=== PATIENT | female | born 1965 | race Hispanic/Latino ===

== ENCOUNTER 2017-07-10 11:25 | Inpatient (IN) | payer SELFPAY ==
[~2017-07-10] VITALS: Ht 147.3 cm; Wt 67.4 kg
[~2017-07-10 11:25] MED LIST: ASPIRIN EC81 MG PO; GLIPIZIDE10 MG PO; LISINOPRIL10 MG PO; LOVASTATIN10 MG PO; MECLIZINE25 MG PO; METFORMIN500 MG PO
--- NOTE | 2017-07-10 11:35 | NUR ---
PT TO ROOM 6 VIA EMS STRETCHER. MD AWARE OF PT STATUS.
--- NOTE | 2017-07-10 11:50 | NUR ---
PT TACHYPNIC, RR 28 AT THIS TIME AND SAO2 89% ON ROOM AIR. DAUGHTER AT BEDSIDE AND REPORTS PT WAS ADMITTED FOR ANEMIA AND DISCHARGE 4 DAYS PRIOR. PT HAS BEEN SOB SINCE TRANFUSION PER DAUGHTER. SKIN W/P/D, PT ABLE TO SPEAK IN FULL SENTENCES WITH NO DIFFICULTY. +1 PITTING EDEMA NOTED TO BILATERAL LOWER EXTREMITIES. LUNG SOUNDS DIMINISHED BILATERALY WITH RALES. RT AT BEDSIDE. PT PLACED IN HF POSITION. WILL CONTINUE TO MONITOR.
[2017-07-10 12:17] LABS: HEMATOCRIT 37.7 % (37.0-47.0); HEMOGLOBIN 12.4 g/dl (12.0-16.0); IMMATURE GRANULOCYTES 0.5 % (0.0-1.0); MEAN CELL VOLUME 87.7 fL CALC (80.0-100.0); MEAN CORPUSCULAR HGB 28.8 pG CALC (26.0-32.0); MEAN CORPUSCULAR HGB CONC 32.9 g/L CALC (32.0-36.0); NEUT# 6.92 thou/uL (2.00-7.15); RED BLOOD COUNT 4.3 mill/uL (4.20-5.60); RED CELL DISTRI WIDTH 15.9 % (11.5-15.5)
--- NOTE | 2017-07-10 12:30 | NUR ---
SAO2 95% ON 2 L NC. PT RESTING COMFORTABLY IN STRETCHER. PT DENIES ANY PAIN AT THIS TIME. RR 20. PT AWARE OF PLAN OF CARE AND WAIT TIME. CALL PARRA WITHIN REACH, WILL CONTINUE TO MONITOR.
[2017-07-10 12:44] LABS: ALKALINE PHOSPHATASE 111 u/l (38-126); ANION GAP 18 (6-22 (CALC)); BILIRUBIN, TOTAL 1.2 mg/dL (0.0-1.4); BUN 13 mg/dL (7-17); BUN/CREATININE RATIO 21 (12-20 (CALC)); CALCIUM 9.7 mg/dL (8.4-10.2); CARBON DIOXIDE 21 mmol/l (22-30); CHLORIDE 105 mmol/l (95-108); CREATININE 0.6 mg/dL (0.5-1.0); GFR > 60 ML/MIN (>=60 (CALC)); GFR FOR AFR.AMER. > 60 ML/MIN (>=60 (CALC)); GLUCOSE 232 mg/dL (65-105); POTASSIUM 4.2 mmol/l (3.5-5.1); SGOT/AST 27 u/l (14-36); SGPT/ALT 36 u/l (9-52); SODIUM 139 mmol/l (137-146); TOTAL PROTEIN 7.6 g/dL (6.3-8.2)
[2017-07-10 12:57] LABS: MYOGLOBIN 22 ng/mL (0 - 62)
--- NOTE | 2017-07-10 13:00 | NUR ---
PT RESTING COMFORTABLY IN STRETCHER WITH HOB ELEVATED. PT DENIES ANY NEEDS AT THIS TIME. DAUGHTER IS AWARE OF WAIT TIME AND PLAN OF CARE.
[2017-07-10] MEDS ORDERED: GLIMEPIRIDE2 MG PO (13:12)
[2017-07-10] MEDS ORDERED: PREDNISONE20 MG PO (13:14)
[2017-07-10] MEDS ORDERED: MELOXICAM7.5 MG PO (13:14)
[2017-07-10] MEDS ORDERED: LEVOTHYROXIN125 MCG PO (13:16)
[2017-07-10] MEDS ORDERED: FERR SULFATE325 MG PO (13:16)
[2017-07-10] MEDS ORDERED: OMEPRAZOLE10 MG PO (13:16)
--- NOTE | 2017-07-10 14:00 | NUR ---
PT DENIES ANY SOB AT THIS TIME AND IS AWARE OF PLAN FOR CTA. WILL CONTINUE TO MONITOR. CALL PARRA WITHIN REACH.
--- NOTE | 2017-07-10 14:52 | NUR ---
PT AND DAUGHTER AWARE OF PLAN FOR ADMISSION AND WAIT TIME. CALL PARRA WITHIN REACH, WILL CONTINUE TO MONITOR. PT DENIES ANY CP OR SOB AT THIS TIME. WILL CONTINUE TO MONITOR.
--- NOTE | 2017-07-10 15:45 | NUR ---
ASSISTED PT TO BEDSIDE COMMODE. PT RESTING COMFORTABLY, DAUGHTER AT BEDSIDE. BOTH AWARE OF PENDING CT RESULTS AND WAIT TIME. CALL PARRA WITHIN REACH.
--- NOTE | 2017-07-10 16:30 | NUR ---
PT VOIDED 900 MLS OF PALE YELLOW URINE. PT RESTING COMFORTBALY IN STRETCHER, WILL CONTINUE TO MONITOR. CALL PARRA WITHIN REACH.
--- NOTE | 2017-07-10 17:15 | NUR ---
PT VOIDED 400 MLS OF PALE YELLOW URINE. PT AND DAUGHTER AWARE OF PLAN FOR ADMISSION AND WAIT TIME. CALL PARRA WITHIN REACH.
--- NOTE | 2017-07-10 17:36 | NUR ---
CADEN CALLED TO CHEY DOMINGUEZ.
--- NOTE | 2017-07-10 18:00 | NUR ---
PT VOIDED 300 MLS OF PALE YELLOW URINE AND DENIES ANY SOB AT THIS TIME. CALL PARRA WITHIN REACH.
--- NOTE | 2017-07-10 18:18 | NUR ---
PT. ARRIVED TO FLOOR VIA STRETCHER AND CHEY SPENCER. PT.APPEARS TO BE STABLE AT THIS TIME. V/S ARE BEING ASSESSED AND PT.ORIENTED TO ROOM, CALL SYSTEM AND LIGHTS/TV. FAMILY IS WITH PT AND DENIES ANY NEEDS AT THIS TIME.
--- NOTE | 2017-07-10 18:18 | NUR ---
Admission Note Report Given to: CHEY DOMINGUEZ Transported by: Wheelchair X Stretcher Transported with: X Nurse Transporter X Patent IV X O2 X Colorer Hides And Skins
[2017-07-10 18:20] VITALS: BP 169/79
--- NOTE | 2017-07-10 19:00 | NUR ---
RECEIVED CHANGE OF SHIFT REPORT FROM CHEY MONTES. PATIENT A/O AND SITTING UP IN BED TALKING ON THE PNONE. DENIES PAIN OR SOB AT THIS TIME. WILL CONTINUE TO MONITOR.
--- NOTE | 2017-07-10 19:45 | NUR ---
PT.MEDICATED W/NOVOLOG 6UM FOR BS 404. PT.JUST FINISHED EATING. CHEY ABAD STATED THAT HE WAS NOTIFYING . FAMILY IS AT BEDSIDE. I ASSISTED PT.TO RESTROOM, PT AMBULATED WELL.
[2017-07-11] VITALS (7 sets, daily range): BP systolic 142–173; BP diastolic 70–84
--- NOTE | 2017-07-11 | NUR ---
PATIENT RESTING COMFORTABLY AT THIS TIME. RESP. EVEN AND NONLABORED. NO APPARENT ACUTED DISTRESS NOTED. WILL CONTINUE TO MONITOR.
--- NOTE | 2017-07-11 04:00 | NUR ---
NO APPARENT ACUTE CHANGES NOTED IN PT'S CONDITION.
--- NOTE | 2017-07-11 07:00 | NUR ---
SHIFT CHANGE REPORT FROM RAN ABAD AWAKE AND ALERT RESTING IN BED, C/O DULL PAIN TO RIGHT EPIGASTRIC AREA, TELE MONITOR IN PLACE, CALL PARRA IN REACH, FAMILY AT BEDSIDE
[2017-07-11 07:19] LABS: HEMATOCRIT 33.9 % (37.0-47.0); HEMOGLOBIN 11.1 g/dl (12.0-16.0); MEAN CELL VOLUME 87.6 fL CALC (80.0-100.0); MEAN CORPUSCULAR HGB 28.7 pG CALC (26.0-32.0); MEAN CORPUSCULAR HGB CONC 32.7 g/L CALC (32.0-36.0); RED BLOOD COUNT 3.87 mill/uL (4.20-5.60); RED CELL DISTRI WIDTH 15.7 % (11.5-15.5)
[2017-07-11 07:22] LABS: ANION GAP 15 (6-22 (CALC)); BUN 20 mg/dL (7-17); BUN/CREATININE RATIO 21 (12-20 (CALC)); CALCIUM 9.5 mg/dL (8.4-10.2); CARBON DIOXIDE 26 mmol/l (22-30); CHLORIDE 104 mmol/l (95-108); GFR 58 ML/MIN (>=60 (CALC)); GFR FOR AFR.AMER. > 60 ML/MIN (>=60 (CALC)); GLUCOSE 76 mg/dL (65-105); MAGNESIUM 1.5 mg/dL (1.6-2.3); POTASSIUM 3.5 mmol/l (3.5-5.1); SODIUM 142 mmol/l (137-146)
[2017-07-11 07:41] LABS: CHOLESTEROL HDL RATIO 5.2 (<4.4 (CALC))
[2017-07-11 13:01] LABS: URINE BILIRUBIN - DIPSTICK NEGATIVE (NEGATIVE); URINE BLOOD DIPSTICK NEGATIVE (NEGATIVE); URINE COLOR YELLOW; URINE GLUCOSE - DIPSTICK NEGATIVE (NEGATIVE); URINE KETONE NEGATIVE (NEGATIVE); URINE LEUK ESTERASE NEGATIVE (NEGATIVE); URINE NITRITE - DIPSTICK NEGATIVE (Negative); URINE PH 5.5 (4.5-8.0); URINE PROTEIN - DIPSTICK NEGATIVE (NEG-TRACE); URINE SPECIFIC GRAVITY 1.015
[2017-07-11 13:02] LABS: URINE CLARITY CLEAR
--- NOTE | 2017-07-11 16:00 | NUR ---
BP @ 1530 = 179/79, 10JMG HYDRALIZINE GIVEN, BP @ 1745 = 142/70 RESTING IN BED, HAD REFUSED SHOWER EARLIER STATING HER DAUGHTER WOULD ASSIST HER, STILL HAS NOT HAD SHOWER TO THIS TIME, WHEN SITUATION ADDRESSED, STATED SHE WILL HAVE IT LATER. FAMILY IN ROOM, CALL PARRA IN REACH.
--- NOTE | 2017-07-11 16:26 | NUR ---
RESTING IN BED AT THIS TIME, ELEVATED BP TREATED PER ORDER, FAMILY AT BEDSIDE.
--- NOTE | 2017-07-11 16:39 | NUR ---
Talked to patient today about her medications. Patient reported feeling better. discussed side effects of ferrous sulfate and hydralazine medications. Patient reported no side effects with these medications. Discussed side effects of lovenox and insulin. Patient reported no side effects. Patient has no other questions to the pharmacy at this time.
--- NOTE | 2017-07-11 19:00 | NUR ---
RECEIOVED CHANGE OF SHIFT REPORT FROM CHEY MENEZES. PATIENT IN BATHROOM HAVING A SHOWER AT THIS TIME.
[2017-07-12] VITALS (7 sets, daily range): BP systolic 120–168; BP diastolic 72–80
--- NOTE | 2017-07-12 | NUR ---
PT LYING IN BED QUIETLY AND APPEARS TO BE ASLEEP. NO APPARENT ACUTE DISTRESS NOTED.
--- NOTE | 2017-07-12 04:00 | NUR ---
NO APPARENT ACUTE CHANGES NOTED N PATIENT'S CONDITION.
[2017-07-12 06:29] LABS: HEMATOCRIT 31.5 % (37.0-47.0); HEMOGLOBIN 10.5 g/dl (12.0-16.0); IMMATURE GRANULOCYTES 0.3 % (0.0-1.0); MEAN CORPUSCULAR HGB CONC 33.3 g/L CALC (32.0-36.0); NEUT# 2.27 thou/uL (2.00-7.15); RED BLOOD COUNT 3.62 mill/uL (4.20-5.60); RED CELL DISTRI WIDTH 15.4 % (11.5-15.5)
[2017-07-12 06:52] LABS: ANION GAP 14 (6-22 (CALC)); BUN 25 mg/dL (7-17); BUN/CREATININE RATIO 28 (12-20 (CALC)); CALCIUM 8.9 mg/dL (8.4-10.2); CARBON DIOXIDE 27 mmol/l (22-30); CHLORIDE 102 mmol/l (95-108); CREATININE 0.9 mg/dL (0.5-1.0); GFR > 60 ML/MIN (>=60 (CALC)); GFR FOR AFR.AMER. > 60 ML/MIN (>=60 (CALC)); GLUCOSE 315 mg/dL (65-105); MAGNESIUM 1.8 mg/dL (1.6-2.3); POTASSIUM 3.7 mmol/l (3.5-5.1); SODIUM 138 mmol/l (137-146)
--- NOTE | 2017-07-12 07:00 | NUR ---
SHIFT CHANGE REPORT FROM POLLO, RAN SLEEPING BUT AROUSES TO VERBAL STIMULI, REPORTS PAIN TO R.CHEST HAS BEEN RESOLVED, NO NEW COMPLAINS, TELE MONITOR IN PLACE, CALL PARRA IN REACH, FAMILY AT BEDSIDE.
--- NOTE | 2017-07-12 11:47 | NUR ---
DR SMITH ROUNDED WITH PT, SHE IS RESTING IN BED, ALL NEEDS ADDRESSED, CALL PARRA IN REACH.
--- NOTE | 2017-07-12 11:49 | NUR ---
REQUEST FOR MEDICAL RECORDS FAXED TO [facility] ON07/11/17, STILL AWAITING RESPONSE. REQUEST REFAXED TODAY AND CAPPING MACHINE OPERATOR APPEMPTED TO CONTACT VIA PHONE BUT WITH NO RESPONSE.
--- NOTE | 2017-07-12 16:54 | NUR ---
RELAXING IN ROOM WITH MANY FAMILY MEMBERS, ALL NEEDS MET, CALL PARRA IN REACH.
--- NOTE | 2017-07-12 19:50 | NUR ---
PT RESTING IN BED WITH FAMILY AT BEDSIDE. RESP EVEN AND UNLABORED. NO DISTRESS NOTED. TELE IN PLACE. ABD SOFT; ACTIVE BOWEL SOUNDS. PEDAL PULSES PALPATED BILAT. IV LAC FLUSHED WITHOUT DIFFICULTY. SAFETY PRECAUTIONS REINFORCED. PT DENIES ANY PAIN OR DISCOMFORT. CALL LIGHT WITHIN REACH.
[2017-07-13 00:09] VITALS: BP 118/57
--- NOTE | 2017-07-13 00:25 | NUR ---
FAMILY AT BEDSIDE. PT RESP EVEN AND UNLABORED. NO DISTRESS NOTED. TELE IN PLACE. CALL LIGHT WITHIN REACH.
--- NOTE | 2017-07-13 04:15 | NUR ---
RESP EVEN AND UNLABORED; NO DISTRESS NOTED. TELE IN PLACE. ASSESSMENT UNCHANGED. FAMILY AT BEDSIDE. CALL LIGHT WITHIN REACH.
[2017-07-13 05:19] LABS: HEMATOCRIT 33.6 % (37.0-47.0); IMMATURE GRANULOCYTES 0.5 % (0.0-1.0); MEAN CELL VOLUME 88.4 fL CALC (80.0-100.0); MEAN CORPUSCULAR HGB 28.9 pG CALC (26.0-32.0); MEAN CORPUSCULAR HGB CONC 32.7 g/L CALC (32.0-36.0); NEUT# 4.36 thou/uL (2.00-7.15); RED BLOOD COUNT 3.8 mill/uL (4.20-5.60); RED CELL DISTRI WIDTH 15.3 % (11.5-15.5)
[2017-07-13 05:30] VITALS: BP 161/77
[2017-07-13 05:36] LABS: ANION GAP 6 (6-22 (CALC)); BUN 32 mg/dL (7-17); BUN/CREATININE RATIO 36 (12-20 (CALC)); CALCIUM 8.4 mg/dL (8.4-10.2); CARBON DIOXIDE 29 mmol/l (22-30); CHLORIDE 104 mmol/l (95-108); CREATININE 0.9 mg/dL (0.5-1.0); GFR > 60 ML/MIN (>=60 (CALC)); GFR FOR AFR.AMER. > 60 ML/MIN (>=60 (CALC)); GLUCOSE 201 mg/dL (65-105); POTASSIUM 3.6 mmol/l (3.5-5.1); SODIUM 136 mmol/l (137-146)
--- NOTE | 2017-07-13 07:00 | NUR ---
SHIFT CHANGE REPORT FROM MARCY, RAN SLEEPING BUT AWAKENED TO VERBAL STIMULI, DENIES PAIN/DISCOMFORT, TELE MONITOR IN PLACE, CALL PARRA IN REACH, FAMILY IN ROOM.
[2017-07-13 07:28] VITALS: BP 159/84
[2017-07-13 07:40] VITALS: BP 159/84
[2017-07-13] MEDS ORDERED: CARVEDILOL6.25 MG PO (08:56)
--- NOTE | 2017-07-13 12:28 | NUR ---
Discharge instructions given. Patient verbalizes understanding of same. Discharged in poor condition via Wheelchair to Home with family. All belongings sent with pt.
== END 2017-07-13 12:28 | disposition home or self-care (01) | DRG 293 ==
LOC: ED 11:25 → ED-I 12:50 → ED 17:01 → MS2 17:02
PROVIDERS: Emergency Medicine; Internal Medicine; Nurse Practitioner Family; ADMIT Internal Medicine; ATTEND Internal Medicine
DX: I11.0 Hypertensive heart disease with heart failure (principal); I50.1 Left ventricular failure, unspecified; E11.65 Type 2 diabetes mellitus with hyperglycemia; D64.9 Anemia, unspecified; E78.5 Hyperlipidemia, unspecified; E66.9 Obesity, unspecified; E03.9 Hypothyroidism, unspecified; I25.10 Atherosclerotic heart disease of native coronary artery without angina pectoris; I25.2 Old myocardial infarction; K21.9 Gastro-esophageal reflux disease without esophagitis; Z79.84 Long term (current) use of oral hypoglycemic drugs; Z87.891 Personal history of nicotine dependence; Z68.33 Body mass index [BMI] 33.0-33.9, adult
CPT/HCPCS: J1650; Q9967

== ENCOUNTER 2017-11-20 00:26 | Observation (INO) | payer SELFPAY ==
[~2017-11-20] VITALS: Ht 147.3 cm; Wt 67.2 kg
[~2017-11-20 00:26] MED LIST changes: +CARVEDILOL6.25 MG PO; +FERR SULFATE325 MG PO; +GLIMEPIRIDE2 MG PO; +LEVOTHYROXIN125 MCG PO; +MELOXICAM7.5 MG PO; +OMEPRAZOLE10 MG PO; +PREDNISONE20 MG PO
--- NOTE | 2017-11-20 00:48 | NUR ---
PT. TO ROOM 13 VIA EMS OC C-PAP PER EMS. MD AT BEDSIDE.
[2017-11-20] MEDS ORDERED: PLAVIX75 MG PO (00:53)
[2017-11-20 00:59] LABS: HEMATOCRIT 38.1 % (37.0-47.0); IMMATURE GRANULOCYTES 0.4 % (0.0-1.0); MEAN CORPUSCULAR HGB 27.1 pG CALC (26.0-32.0); MEAN CORPUSCULAR HGB CONC 31.5 g/L CALC (32.0-36.0); NEUT# 3.22 thou/uL (2.00-7.15); RED BLOOD COUNT 4.43 mill/uL (4.20-5.60); RED CELL DISTRI WIDTH 14.8 % (11.5-15.5)
[2017-11-20 01:14] LABS: ALBUMIN 3.6 g/dL (3.2-5.0); ALKALINE PHOSPHATASE 101 u/l (38-126); BILIRUBIN, TOTAL 0.5 mg/dL (0.0-1.4); BUN 22 mg/dL (7-17); BUN/CREATININE RATIO 20 (12-20 (CALC)); CHLORIDE 111 mmol/l (95-108); CREATININE 1.1 mg/dL (0.5-1.0); GFR 52 ML/MIN (>=60 (CALC)); GFR FOR AFR.AMER. > 60 ML/MIN (>=60 (CALC)); SGOT/AST 20 u/l (14-36); SGPT/ALT 23 u/l (9-52); SODIUM 141 mmol/l (137-146); TOTAL PROTEIN 7.6 g/dL (6.3-8.2)
[2017-11-20 01:15] LABS: ANION GAP 20 (6-22 (CALC)); POTASSIUM 3.5 mmol/l (3.5-5.1)
--- NOTE | 2017-11-20 01:15 | NUR ---
PLACED ON BIPAP AFTER ABG WAS ANALYSED. BIPAP OF 16/8, RATE OF 20 WITH 100%. THEN DECREASED FIO2 TO 60%. BREATHING TREATMENT GIVEN INLINE. WILL CONTINUE TO MONITOR THE PATIENT.
[2017-11-20 01:16] LABS: CARBON DIOXIDE 14 mmol/l (22-30)
[2017-11-20 01:27] LABS: MYOGLOBIN 30 ng/mL (0 - 62)
[2017-11-20 01:28] LABS: URINE BILIRUBIN - DIPSTICK NEGATIVE (NEGATIVE); URINE BLOOD DIPSTICK TRACE-INTACT (NEGATIVE); URINE COLOR YELLOW; URINE GLUCOSE - DIPSTICK 500 mg/dL (NEGATIVE); URINE KETONE NEGATIVE (NEGATIVE); URINE LEUK ESTERASE NEGATIVE (NEGATIVE); URINE NITRITE - DIPSTICK NEGATIVE (Negative); URINE PH 5.5 (4.5-8.0); URINE PROTEIN - DIPSTICK 100 mg/dL (NEG-TRACE); URINE SPECIFIC GRAVITY 1.015; URINE UROBILINOGEN - DIPSTICK 0.2 E.U./dL (0.2)
[2017-11-20 01:30] LABS: URINE CLARITY SL CLOUDY
[2017-11-20 01:37] LABS: URINE BACTERIA FEW hpf; URINE RBC 0-2 RBC/hpf (0-5); URINE SQUAMOUS EPITHELIAL CELL FEW EPI/hpf (0-FEW); URINE WBC 0-2 WBC/hpf (0-5)
[2017-11-20 01:38] LABS: URINE AMORPH SEDIMENT MODERATE hpf (NONE-FEW); URINE COARSE GRANULAR CAST FEW lpf
--- NOTE | 2017-11-20 01:40 | NUR ---
PT ASSISTED TO BSC TO DEFECATE LG SOFT BROWN BM PERICARE/LINENS CHANGED WARM BLANKET
--- NOTE | 2017-11-20 01:40 | NUR ---
AT 0140, PATIENT PLACED ON 3L NC. PATIENT SPO2 95-97%. WILL CONTINUE TO MONITOR THE PATIENT.
--- NOTE | 2017-11-20 01:59 | NUR ---
PHONE REPORT TO NURSE VIDAL ON MS
--- NOTE | 2017-11-20 02:10 | NUR ---
TO MS IN IMPROVED STABLE CONDITION
--- NOTE | 2017-11-20 02:20 | NUR ---
PT ARRIVED TO FLOOR VIA STRETCHER WITH ER NURSE. PT AMBULATED TO SCALE, THEN TO BED. VITAL SIGNS OBTAINED BY PUBLIC RELATIONS CONSULTANT. PT ORIENTED TO ROOM AND CALL LIGHT SYSTEM. PT DENIES PAIN. RESP EVEN AND UNLABORED WITH 3L O2 IN PLACE. LUNGS DIMINISHED THROUGHOUT. ABD SOFT, ACTIVE BOWEL SOUNDS. PT SON REPORTS PT HAD BM DOWN IN ER. TRACE ANKLE EDEMA NOTED BILAT. RIGHT FOOT 4TH TOE AMPUTATED. DRESSING ON FOOT, PT SON REQUEST DRESSING STAYS IN PLACE IT WAS JUST CHANGED TODAY, PT REPORTS NO OPEN AREA. NO DRAINAGE NOTED, CDI. NO FOUL ODOR NOTED. IV LAC PATENT; FLUSHED WITHOUT DIFFICULTY. STANFORD PATENT; DRAINING YELLOW URINE. SAFETY PRECAUTIONS REINFORCED. FREQUENT ROUNDS MADE. CALL LIGHT WITHIN REACH.
[2017-11-20 02:30] VITALS: BP 119/66
--- NOTE | 2017-11-20 04:05 | NUR ---
ASSESSMENT UNCHANGED; RESP EVEN AND UNLABORED. IV PATENT; NO REDNESS OR EDEMA NOTED. TELE ON. CALL LIGHT WITHIN REACH.
--- NOTE | 2017-11-20 04:10 | NUR ---
PT RESTING IN BED. RESP EVEN AND UNLABORED WITH O2 IN PLACE. STANFORD PATENT. ASSESSMENT UNCHNAGED. SON AT BEDSIDE. CALL LIGHT WITHIN REACH.
[2017-11-20 05:11] VITALS: BP 93/58
[2017-11-20 06:44] LABS: ANION GAP 19 (6-22 (CALC)); BUN 23 mg/dL (7-17); BUN/CREATININE RATIO 22 (12-20 (CALC)); CARBON DIOXIDE 16 mmol/l (22-30); CHLORIDE 111 mmol/l (95-108); GFR 58 ML/MIN (>=60 (CALC)); GFR FOR AFR.AMER. > 60 ML/MIN (>=60 (CALC)); SODIUM 142 mmol/l (137-146)
[2017-11-20 06:58] VITALS: BP 110/68
--- NOTE | 2017-11-20 07:20 | NUR ---
REPORT RECEIVED FROM MAGALI VIDAL;PT RESTING IN SEMI FOWLERS POSITION WITH SON AT BEDSIDE;CURRENT BP 110/68,HR 89;CRITICAL TROP OF 0.289 RECEIVED AND TO BE REPORTED TO MD BY MAGALI VIDAL,AWAITING NEW ORDERS;PT ASYMPTOMATIC AT THIS TIME;RESPIRATIONS APPEAR EVEN AND UNLABORED ON O2 @ 3L VIA NC;STAT EKG TO BE OBTAINED;PT DENIES ANY CURRENT NEEDS;ENCOURAGED TO CALL FOR ASSISTANCE AND TO REPORT ANY CONCERNS OR NEEDS;FALL PRECAUTIONS IN PLACE WITH CALL LIGHT IN REACH;WILL CONTINUE TO MONITOR
--- NOTE | 2017-11-20 07:25 | NUR ---
CRITICAL TROPONIN; 0.289. VITAL SIGNS OBTAINED. BP: 110/68 HR:89 02:100 ON O2 3L. EKG OBTAINED. PT DENIES ANY CHEST PAIN. DR WINSLOW INFORMED OF CRITICAL TROPONIN. NEW ORDERS; REPEAT TROPONIN IN 4 HOURS. NO OTHER ORDERS RECIEVED AT THIS TIME. REPORT GIVEN TO MAGALI MELO.
--- NOTE | 2017-11-20 08:00 | NUR ---
PT RESTING IN SEMI FOWLERS POSITION WITH SON AT BEDSIDE,PT IS NOTED TO BE [place] SPEAKING ONLY AND SON ASSISTS IN TRANSLATION;VS OBTAINED AND ASSESSMENT COMPLETED;PT DENIES ANY CURRENT CHEST PAIN OR DISCOMFORTS;RESPIRATIONS EVEN AND UNLABORED ON OXYGEN @ 3L VIA NC,CLEAR/DIMINISHED LUNG SOUNDS NOTED;ABDOMEN SOFT ON PALPATION AND ACTIVE IN ALL 4 QUADRANTS;DRESSING TO RIGHT FOOT FROM AMPUTATED 4TH TOE IN JUL CDI,SKIN OTHERWISE INTACT;PNEMONIA VACCINATION ADMINISTERED TO RIGHT ARM AT THIS TIME;STANFORD CATHETER PATENT DRAINING PALE YELLOW/CLEAR URINE;PT AMBULATED TO RESTROOM WITH STEADY GAIT AND HAD A MODERATE/BROWN BM;#20G TO LAC FLUSHED AND PATENT,SITE APPEARS HEALTHY;PT DENIES ANY CURRENT NEEDS;ENCOURAGED TO CALL FOR ASSISTANCE IF NEEDED;CALL LIGHT IN REACH;WILL CONTINUE TO MONITOR
[2017-11-20 08:03] VITALS: BP 125/83
--- NOTE | 2017-11-20 10:00 | NUR ---
PT RESTING IN SEMI FOWLERS POSITION SON REMAINS AT BEDSIDE;PT REPORTS CHEST DISCOMFORT RATING 3/10 ON THE PAIN SCALE,MD NOTIFIED AND NO NEW ORDERS RECEIVED;WILL CONTINUE TO MONITOR
--- NOTE | 2017-11-20 10:28 | NUR ---
CALL RECEIVED FROM [facility],LAB REPORTING CRITICAL TROP OF 0.392, NOTIFIED AT THIS TIME;TRANSFER INITIATE BY CASE MANAGEMENT;WILL CONTINUE TO MONITOR
--- NOTE | 2017-11-20 10:40 | NUR ---
STAT EKG BEING OBTAINED AT THIS TIME
[2017-11-20 11:08] VITALS: BP 110/74
--- NOTE | 2017-11-20 12:10 | NUR ---
PT RESTING IN SEMI FOWLERS POSITION WITH FAMILY AT BEDSIDE;PT ENCOURAGED TO EAT LUNCH DUE TO LOW BS OF 82,PT VERBALIZES UNDERSTANDING;RESPIRATIONS EVEN AND UNLABORED ON OXYGEN @ 3L VIA NC;PT DENIES ANY CURRENT PAIN OR NEEDS;ENCOURAGED TO CALL FOR ASSISTANCE IF NEEDED;CALL LIGHT IN REACH;WILL CONTINUE TO MONITOR
--- NOTE | 2017-11-20 15:16 | NUR ---
CRITICAL TROP OF 0.476 OBTAINED,PT ASYMPTOMATIC;RICO MULLER,ANRP NOTIFIED
[2017-11-20 15:30] VITALS: BP 109/70
--- NOTE | 2017-11-20 15:30 | NUR ---
PT AMBULATED WITH 1 PERSON ASSIST TO RESTROOM;PT DENIES ANY CURRENT NEEDS;RESPIRATIONS REMAIN EVEN AND UNLABORED ON OXYGEN @ 3L VIA NC;WILL CONTINUE TO MONITOR
--- NOTE | 2017-11-20 18:37 | NUR ---
CALL RECEIVED FROM JHONNY AT [facility]
--- NOTE | 2017-11-20 18:45 | NUR ---
SPOKE WITH ASHWINI LO;ETA FOR ARRIVAL 20-30MINS;PT TO BE NOTIFIED
--- NOTE | 2017-11-20 19:09 | NUR ---
REPORT CALLED TO CHEY BETANCUR AT [facility];AWAITING [facility] FOR [facility]SF[facility]
--- NOTE | 2017-11-20 19:30 | NUR ---
PT RESTING IN BED AWAKE. SON IN ROOM. INFORMED PT AND SON THAT [facility] SHOULD BE HERE FOR TRANSFER SOON. BOTH VERBALIZED UNDERSTANDING. CALL LIGHT IN REACH. WILL CONTINUE TO MONTIOR
--- NOTE | 2017-11-20 19:40 | NUR ---
REPORT GIVEN TO [place] TEAM. SON WILL RIDE WITH [place]low[place].
--- NOTE | 2017-11-20 19:57 | NUR ---
Discharge instructions given. Patient verbalizes understanding of same. Discharged in stable condition via Stretcher to *Other with family. All belongings sent with pt. PT VIA [place] STRETCHER WITH FAMILY IN STABLE CONDITION TO [facility]
== END 2017-11-20 20:00 | disposition short-term general hospital (02) | DRG 281 ==
LOC: ED 00:26 → ED-I 01:20 → ED 01:49 → MS2 01:50
PROVIDERS: Family Medicine; ADMIT Internal Medicine; ATTEND Internal Medicine
PROC: 0T9B70Z Drainage of Bladder with Drainage Device, Via Natural or Artificial Opening (ICD-10-PCS; principal; 2017-11-20)
PROC: 5A09357 Assistance with Respiratory Ventilation, Less than 24 Consecutive Hours, Continuous Positive Airway Pressure (ICD-10-PCS; 2017-11-20)
DX: I21.4 Non-ST elevation (NSTEMI) myocardial infarction (principal); E87.2 Acidosis; I11.0 Hypertensive heart disease with heart failure; I50.9 Heart failure, unspecified; E11.9 Type 2 diabetes mellitus without complications; I73.9 Peripheral vascular disease, unspecified; E03.9 Hypothyroidism, unspecified; E78.5 Hyperlipidemia, unspecified; K21.9 Gastro-esophageal reflux disease without esophagitis; F17.210 Nicotine dependence, cigarettes, uncomplicated; Z91.14 Patient's other noncompliance with medication regimen; Z79.84 Long term (current) use of oral hypoglycemic drugs; Z89.421 Acquired absence of other right toe(s); Z79.02 Long term (current) use of antithrombotics/antiplatelets
CPT/HCPCS: G0378; J1650

== ENCOUNTER 2019-11-10 14:02 | Observation (INO) | payer SELFPAY ==
[~2019-11-10] VITALS: Ht 147.3 cm; Wt 72.7 kg
[~2019-11-10 14:02] MED LIST changes: +PLAVIX75 MG PO
[2019-11-10 14:48] LABS: IMMATURE GRANULOCYTES 0.3 % (0.0-5.0); MEAN CELL VOLUME 87.1 fL CALC (80.0-100.0); MEAN CORPUSCULAR HGB 28.4 pG CALC (26.0-32.0); MEAN CORPUSCULAR HGB CONC 32.6 g/dL CAL (32.0-36.0); NEUT# 4.13 thou/uL (2.00-7.15); RED BLOOD COUNT 3.1 mill/uL (4.20-5.60); RED CELL DISTRI WIDTH 12.8 % (11.5-15.5)
[2019-11-10 14:50] LABS: HEMOGLOBIN 8.8 g/dl (12.0-16.0)
[2019-11-10 15:21] LABS: ALBUMIN 3.7 g/dL (3.2-5.0); ALKALINE PHOSPHATASE 135 u/l (38-126); ANION GAP 13 (6-22 (CALC)); BILIRUBIN, TOTAL 0.5 mg/dL (0.0-1.4); BUN 50 mg/dL (7-17); BUN/CREATININE RATIO 26 (12-20 (CALC)); CARBON DIOXIDE 18 mmol/l (22-30); CHLORIDE 112 mmol/l (95-108); CREATININE 1.9 mg/dL (0.5-1.0); GFR 27 ML/MIN (>=60 (CALC)); GFR FOR AFR.AMER. 33 ML/MIN (>=60 (CALC)); LIPASE 77 u/l (23-300); SGOT/AST 23 u/l (14-36); SODIUM 137 mmol/l (137-146); TOTAL PROTEIN 7.2 g/dL (6.3-8.2)
[2019-11-10 15:24] LABS: POTASSIUM 5.9 mmol/l (3.5-5.1)
[2019-11-10] MEDS ORDERED: LASIX 20 MG TAB20 MG PO (15:28)
[2019-11-10] MEDS ORDERED: SPIRONOLACTONE25 MG PO (15:29)
[2019-11-10] MEDS ORDERED: LIPITOR40 M1 PO (15:30)
[2019-11-10] MEDS ORDERED: COREG25 MG PO (15:31)
[2019-11-10 15:35] LABS: URINE BILIRUBIN - DIPSTICK NEGATIVE (NEGATIVE); URINE BLOOD DIPSTICK SMALL (NEGATIVE); URINE COLOR YELLOW; URINE GLUCOSE - DIPSTICK NEGATIVE (NEGATIVE); URINE KETONE NEGATIVE (NEGATIVE); URINE LEUK ESTERASE NEGATIVE (NEGATIVE); URINE PH 5.5 (4.5-8.0); URINE PROTEIN - DIPSTICK >=300 mg/dL (NEG-TRACE); URINE SPECIFIC GRAVITY >=1.030; URINE UROBILINOGEN - DIPSTICK 0.2 E.U./dL (0.2)
[2019-11-10 15:36] LABS: URINE NITRITE - DIPSTICK POSITIVE (Negative)
[2019-11-10 15:49] LABS: URINE AMORPH SEDIMENT FEW hpf (NONE-FEW); URINE BACTERIA MODERATE hpf; URINE SQUAMOUS EPITHELIAL CELL FEW EPI/hpf (0-FEW)
[2019-11-10 17:43] VITALS: BP 195/75
[2019-11-10 17:50] VITALS: BP 195/75
[2019-11-10 18:32] VITALS: BP 191/89
[2019-11-10 23:43] VITALS: BP 153/61
[2019-11-11 04:45] VITALS: BP 170/76
[2019-11-11 05:42] LABS: HEMATOCRIT 25.9 % (37.0-47.0); HEMOGLOBIN 8.4 g/dl (12.0-16.0); IMMATURE GRANULOCYTES 0.5 % (0.0-5.0); MEAN CELL VOLUME 88.4 fL CALC (80.0-100.0); MEAN CORPUSCULAR HGB 28.7 pG CALC (26.0-32.0); MEAN CORPUSCULAR HGB CONC 32.4 g/dL CAL (32.0-36.0); NEUT# 2.93 thou/uL (2.00-7.15); RED BLOOD COUNT 2.93 mill/uL (4.20-5.60); RED CELL DISTRI WIDTH 12.6 % (11.5-15.5)
[2019-11-11 06:01] LABS: BILIRUBIN, TOTAL 0.4 mg/dL (0.0-1.4); CREATININE 1.5 mg/dL (0.5-1.0); POTASSIUM 5.1 mmol/l (3.5-5.1); TOTAL PROTEIN 5.9 g/dL (6.3-8.2)
[2019-11-11 06:02] LABS: ALBUMIN 2.9 g/dL (3.2-5.0)
[2019-11-11 08:30] VITALS: BP 154/65
[2019-11-11] MEDS ORDERED: AMLODIPINE BESYL5 MG PO (10:27)
[2019-11-11 10:59] VITALS: BP 131/69
[2019-11-11] MEDS ORDERED: CIPROFLOXACN500 MG PO (13:39)
== END 2019-11-11 14:39 | disposition home or self-care (01) | DRG 641 ==
LOC: ED 14:02 → ED-I 15:50 → ED 16:02 → ED-I 16:03 → MS2 16:24
PROVIDERS: Family Medicine; Nurse Practitioner Family; ADMIT Internal Medicine; ATTEND Internal Medicine
DX: E87.5 Hyperkalemia (principal); N39.0 Urinary tract infection, site not specified; N28.9 Disorder of kidney and ureter, unspecified; D63.8 Anemia in other chronic diseases classified elsewhere; I11.0 Hypertensive heart disease with heart failure; I50.9 Heart failure, unspecified; E11.9 Type 2 diabetes mellitus without complications; I25.10 Atherosclerotic heart disease of native coronary artery without angina pectoris; E03.9 Hypothyroidism, unspecified; E78.5 Hyperlipidemia, unspecified; I25.2 Old myocardial infarction; B96.20 Unspecified Escherichia coli [E. coli] as the cause of diseases classified elsewhere; Z79.84 Long term (current) use of oral hypoglycemic drugs; Z87.891 Personal history of nicotine dependence; Z11.59 Encounter for screening for other viral diseases
CPT/HCPCS: G0378

== ENCOUNTER 2020-01-10 21:18 | Emergency (ER) | payer SELFPAY ==
[~2020-01-10] VITALS: Ht 147.3 cm; Wt 68.0 kg
[~2020-01-10 21:18] MED LIST changes: +AMLODIPINE BESYL5 MG PO; +CIPROFLOXACN500 MG PO; +COREG25 MG PO; +LASIX 20 MG TAB20 MG PO; +LIPITOR40 M1 PO; +SPIRONOLACTONE25 MG PO
[2020-01-10 22:04] LABS: HEMATOCRIT 27.8 % (37.0-47.0); HEMOGLOBIN 9.2 g/dl (12.0-16.0); IMMATURE GRANULOCYTES 0.3 % (0.0-5.0); MEAN CORPUSCULAR HGB 27.8 pG CALC (26.0-32.0); MEAN CORPUSCULAR HGB CONC 33.1 g/dL CAL (32.0-36.0); NEUT# 4.62 thou/uL (2.00-7.15); RED BLOOD COUNT 3.31 mill/uL (4.20-5.60); RED CELL DISTRI WIDTH 11.9 % (11.5-15.5)
[2020-01-10 22:22] LABS: ALBUMIN 3.3 g/dL (3.2-5.0); AMYLASE 105 u/l (30-110); BILIRUBIN, TOTAL 0.5 mg/dL (0.0-1.4); BUN 37 mg/dL (7-17); BUN/CREATININE RATIO 21 (12-20 (CALC)); CARBON DIOXIDE 23 mmol/l (22-30); CHLORIDE 102 mmol/l (95-108); CREATININE 1.8 mg/dL (0.5-1.0); GFR 29 ML/MIN (>=60 (CALC)); GFR FOR AFR.AMER. 35 ML/MIN (>=60 (CALC)); LIPASE 53 u/l (23-300); POTASSIUM 4.7 mmol/l (3.5-5.1); SGOT/AST 24 u/l (14-36); TOTAL PROTEIN 6.7 g/dL (6.3-8.2)
[2020-01-10 22:30] LABS: ALKALINE PHOSPHATASE 205 u/l (38-126); ANION GAP 10 (6-22 (CALC)); SODIUM 130 mmol/l (137-146)
[2020-01-10 22:34] LABS: MYOGLOBIN 78 ng/mL (0 - 62)
[2020-01-10 23:29] LABS: URINE BILIRUBIN - DIPSTICK NEGATIVE (NEGATIVE); URINE BLOOD DIPSTICK TRACE-INTACT (NEGATIVE); URINE COLOR YELLOW; URINE GLUCOSE - DIPSTICK 250 mg/dL (NEGATIVE); URINE KETONE NEGATIVE (NEGATIVE); URINE LEUK ESTERASE NEGATIVE (NEGATIVE); URINE NITRITE - DIPSTICK NEGATIVE (Negative); URINE PH 6.5 (4.5-8.0); URINE PROTEIN - DIPSTICK 100 mg/dL (NEG-TRACE); URINE UROBILINOGEN - DIPSTICK 0.2 E.U./dL (0.2)
[2020-01-10 23:32] LABS: URINE BACTERIA FEW hpf; URINE EPITHELIAL CELLS FEW EPI/hpf (0-FEW); URINE MUCUS RARE hpf (NONE-FEW)
[2020-01-10] MEDS ORDERED: ONDANSETRON4 MG PO (23:57)
[2020-01-10] MEDS ORDERED: MECLIZINE25 MG PO (23:57)
[2020-01-10] MEDS ORDERED: CIPROFLOXACN500 MG PO (23:57)
[2020-01-11] VITALS: BP 142/62
== END 2020-01-11 00:29 | disposition home or self-care (01) | DRG 149 ==
LOC: ED 21:18
PROVIDERS: Emergency Medicine
DX: R42 Dizziness and giddiness (principal); E11.65 Type 2 diabetes mellitus with hyperglycemia; N39.0 Urinary tract infection, site not specified; I11.0 Hypertensive heart disease with heart failure; I50.9 Heart failure, unspecified; I25.2 Old myocardial infarction; Z79.84 Long term (current) use of oral hypoglycemic drugs

== ENCOUNTER 2020-10-24 03:08 | Inpatient (IN) | payer SELFPAY ==
[~2020-10-24] VITALS: Ht 147.3 cm; Wt 75.0 kg
[2020-10-24] VITALS (18 sets, daily range): BP systolic 115–159; BP diastolic 39–81
[~2020-10-24 03:08] MED LIST changes: +ONDANSETRON4 MG PO
--- NOTE | 2020-10-24 03:10 | NUR ---
PT MOVED TO ROOM 11 UPON ARRIVAL FOR TRIAGE
[2020-10-24 03:41] LABS: HEMATOCRIT 25.4 % (37.0-47.0); HEMOGLOBIN 7.8 g/dl (12.0-16.0); IMMATURE GRANULOCYTES 0.5 % (0.0-5.0); MEAN CORPUSCULAR HGB 28.6 pG CALC (26.0-32.0); MEAN CORPUSCULAR HGB CONC 30.7 g/dL CAL (32.0-36.0); NEUT# 4.42 thou/uL (2.00-7.15); RED BLOOD COUNT 2.73 mill/uL (4.20-5.60); RED CELL DISTRI WIDTH 13.2 % (11.5-15.5)
--- NOTE | 2020-10-24 04:07 | NUR ---
PT IS ON CPAP AND RESTING COMFORTABLY WITH NOTABLE DECREASE IN HER WORK OF BREATHING
[2020-10-24 04:26] LABS: D-DIMER 0.99 mg/L (0.19-0.60)
[2020-10-24 04:28] LABS: ALBUMIN 3.2 g/dL (3.2-5.0); BILIRUBIN, TOTAL 0.5 mg/dL (0.0-1.4); TOTAL PROTEIN 7.2 g/dL (6.3-8.2)
[2020-10-24 04:31] LABS: INTERNATIONAL NORMALIZED RATIO 0.9 RATIO (0.7-1.3); PROTHROMBIN TIME 9.5 SECONDS (9.0-12.5)
--- NOTE | 2020-10-24 04:32 | NUR ---
BUN 96 CREATNINE 5.5 K+ 6.2 RESULTS REPORTED TO MD AT THIS TIME
[2020-10-24 04:33] LABS: CREATININE 5.5 mg/dL (0.5-1.0); POTASSIUM 6.2 mmol/l (3.5-5.1)
[2020-10-24] MEDS ORDERED: B-COMPL12 (05:19)
[2020-10-24] MEDS ORDERED: LOVASTATIN10 M1 PO (05:20)
[2020-10-24] MEDS ORDERED: METFORMIN HCL1000 MG PO (05:22)
[2020-10-24] MEDS ORDERED: ACIDOPHILUS1 CHW (05:24)
[2020-10-24] MEDS ORDERED: DRISDOL50000 UNIT (05:26)
[2020-10-24] MEDS ORDERED: FAMOTIDINE20 M1 PO (05:27)
[2020-10-24] MEDS ORDERED: FERROUS SULF325 M2 PO (05:28)
[2020-10-24] MEDS ORDERED: HYDRALAZINE50 MG PO (05:28)
[2020-10-24] MEDS ORDERED: ISOSORBIDE MONO30 MG PO (05:30)
[2020-10-24] MEDS ORDERED: MAGN OXIDE XX (05:31)
--- NOTE | 2020-10-24 05:32 | NUR ---
REPORT CALLED TO ICU AWAITING RT FOR PATIENT TRANSPORT
[2020-10-24] MEDS ORDERED: SODIUM BICARBONATE PO (05:33)
--- NOTE | 2020-10-24 05:43 | NUR ---
PT IS BEING TRANSPORTED TO ICU BY RN AND RT FOR PATIENT SAFETY.
--- NOTE | 2020-10-24 06:29 | NUR ---
CALLED AND SPOKE TO NAY PEREZ APRN REGARDING INSULIN DRIP ORDER CLARIFICATION, NOTIFIED HER OF LAB WORK, ANBION GAP, LAB GLUCOSE, NEW ORDERES RECEIVED, PLACE ON LOW DOSE SLIDING SCALE. PROTOCOL PRINTED, SIGNED, AND FAXED TO .
--- NOTE | 2020-10-24 06:31 | NUR ---
PATIENT IS AWAKE, ORIENTED X4. ON BIPAP FIO2 28%, O2 SATS 100%,SHALLOW BREATHING. SHE IS GREEK SPEAKING, REPORTS SHE CANNOT READ OR WRITE. IS ABLE TO ANSWER SOME ADMISSION QUESTIONS, FOR QUESTIONS SUCH , VACCINES OR MEDICAL HISTORY. SHE REPORTS SHE DOES NOT KNOW. REPORTS HER SOB IS MILD NOW. REPORTS SHE HAD A BM AT THE ER BUT DOES NOT KNOW IF IT WAS LOOSE. SHE REPORTS WHEN SHE VOIDS IT IS SMALL AMOUNTS. PLACED A STANFORD CATHETER DUE TO PATIENT HAD DOSE OF LASIX, AND FOR URINE OUT MEASUREMNENT, PATIENT UNDERSTANDS AND AGREED. DENIES FALLING RECENTLY, REPORTS SHE USES A CANE AND HER FAMILY HELPS HER AT HOME, LIVES WITH HER AND SON. AFEBRILE, BP 140'S SYSTOLIC. SR ON TELEMETRY, HR 60'S. DENIES ANY TYPE OF PAIN, NO COUGH NOTED. DID MENTION SHE DOES NOT WANT THE COVID VACCINE. 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 PLACED HER ON A BEDPAN PER REQUEST FOR BM, PATIENT DID NOT WANT TO GET UP TO BSC.
[2020-10-24 07:15] LABS: URINE BILIRUBIN - DIPSTICK NEGATIVE (NEGATIVE); URINE BLOOD DIPSTICK SMALL (NEGATIVE); URINE GLUCOSE - DIPSTICK 250 mg/dL (NEGATIVE); URINE KETONE NEGATIVE (NEGATIVE); URINE LEUK ESTERASE NEGATIVE (NEGATIVE); URINE PH 5.5 (4.5-8.0); URINE PROTEIN - DIPSTICK >=300 mg/dL (NEG-TRACE); URINE UROBILINOGEN - DIPSTICK 0.2 E.U./dL (0.2)
[2020-10-24 07:19] LABS: URINE NITRITE - DIPSTICK NEGATIVE (Negative)
[2020-10-24 07:20] LABS: URINE COLOR STRAW; URINE EPITHELIAL CELLS MODERATE EPI/hpf (0-FEW); URINE MUCUS MANY hpf (NONE-FEW)
--- NOTE | 2020-10-24 07:20 | NUR ---
RECEIVED REPORT FROM NIGHT NURSE.
--- NOTE | 2020-10-24 07:47 | NUR ---
PT TAKEN OFF BIPAP AND PLACED ON 3L NC. NO SOB NOTED. SPO2 IS 100%. RN NOTIFIED.
--- NOTE | 2020-10-24 08:57 | NUR ---
DR. JAMES WAS CONSULTED FOR PATIENT BY DR. BENNETT.
[2020-10-24 09:22] LABS: CREATININE 5.2 mg/dL (0.5-1.0); POTASSIUM 6.8 mmol/l (3.5-5.1)
--- NOTE | 2020-10-24 10:00 | NUR ---
PATIEN IS SITTING UP IN BED.
--- NOTE | 2020-10-24 12:00 | NUR ---
PATIENT IS RESTING IN BED.
--- NOTE | 2020-10-24 12:40 | NUR ---
PATIENTS BLOOD SUGAR 74 AFTER 30 MIN COMPLETION OF DEXTROSE. PATIENT CONTINUES TO REMAIN NPO PER DOCTORS ORDERS.
[2020-10-24 13:50] LABS: ALBUMIN 2.6 g/dL (3.2-5.0)
[2020-10-24 13:59] LABS: CREATININE 5.3 mg/dL (0.5-1.0); POTASSIUM 5.5 mmol/l (3.5-5.1)
--- NOTE | 2020-10-24 14:14 | NUR ---
MESSAGED BOTH DR BENNETT AND DR JAMES ABOUT CRITICAL LAB RESULTS. PATIENT IS ALSO OFF OXYGEN. O2 SATS ARE STABLE AT 98% ROOM AIR.
--- NOTE | 2020-10-24 16:01 | NUR ---
Patient underwent assessment today and is a candidate for PT initial evaluation.
--- NOTE | 2020-10-24 16:04 | NUR ---
PATIENT IS TALKING ON THE PHONE.
--- NOTE | 2020-10-24 17:19 | NUR ---
RT AT BEDSIDE FOR EKG, EKG SENT TO DR BENNETT. DR ROMERO NOTIFEIED OF PT COMPLAINTS OF CHEST PAIN. ORDERS RECEIVED FOR REPEAT TROPONIN IN 6 HOURS.
--- NOTE | 2020-10-24 18:09 | NUR ---
PATIENT IS LAYING IN BED. SPOKE TO DAUGHTER WHEN SHE WAS HERE, GAVE HER AN UPDATE ASK REQUESTED BEFORE SHE LEFT.
--- NOTE | 2020-10-24 19:59 | NUR ---
PATIENT IS AWAKE, ORIENTED X4, LAYS IN HERRERA'S POSITION. ON RA, O2 SATS GREATER THAN 95%, NO RESPIRATORY DISTRESS NOTED, NO SOB NOTED, NO COMPLAINTS OF SOB. DENIES CHEST PAIN. SR ON TELEMETRY, HR 70'S. BP 150'S SYSTOLIC. IS ABLE TO FOLLOW DIRECTIONS, IS ABLE TO PULL HERSELF UP WITH VERBAL CUEING. WEAK AUDIOLOGY DIRECTOR BILATERALLY PRESENT. NURSE ASSESSMENT PERFORMED. POC DISCUSSED. IV X2 PRESENT, INTACT, FLUSH PROPERLY. SODIUM BICARBONATE INFUSING AT 75 ML/HR. STANFORD CATHETER PRESENT, DRAINS PALE YELLOW/CLEAR URINE. BLE EDEMA 1+ PITTING. ACCUCHECK OBTAINED, 137 MG/DL. CALL LIGHT WITHIN REACH.
--- NOTE | 2020-10-24 21:14 | NUR ---
PATIENT ABLE TO SWALLOW HER MEDIACTION, TOLERATES LOVENOX INJECTION. NO COMPLAINTS, NO ACUTE DISTRESS SHOWN. TALKS ON HER CELLPHONE INTERMITTENTLY. CALL LIGHT WITHIN REACH.
--- NOTE | 2020-10-24 21:25 | NUR ---
CALLED AND SPOKE TO ANABELL FERNANDEZ APRN TO NOTIFY OF CRITICAL TROPONIN 0.243. PATIENT DENIES CHEST PAIN, NO ACUTE DISTRESS SHOWN. ANABELL WILL PLACE NEW ORDERS,IF ANY CHANGES, OBTAIN EKG AND NOTIFY HIM. WILL CONTINUE TO MONITOR.
--- NOTE | 2020-10-24 23:00 | NUR ---
NEW IV FLUID BAG OF SODIUM BICARB INFUSING. PATIENT RESTS, AWAKENS EASILY WHEN SPOKEN TO. NO COMPLAINTS OR NEEDS AT THIS TIME. NO ACUTE DISTRESS SHOWN. CALL LIGHT WITHIN REACH.
[2020-10-25] VITALS (9 sets, daily range): BP systolic 126–169; BP diastolic 63–87
--- NOTE | 2020-10-25 00:19 | NUR ---
PLACED PATIENT ON 2 L/MIN NC DUE TO WHEN SHE IS SLEEPING, PULSE OX READS 80'S. NO ACUTE DISTRESS SHOWN. REQUESTS TO PLACE CELLPHONE TO CHARGE. CALL LIGHT WITHIN REACH.
--- NOTE | 2020-10-25 03:24 | NUR ---
PATIENT SLEEPS, NO ACUTE DISTRESS SHOWN, AWAKENS WITH VERBAL STIMULI, NO COMPLAINTS OR NEEDS AT THIS TIME. AFEBRILE, 1,000 ML OF PALE YELLOW/CLEAR URINE EMPTIED FROM STANFORD. CALL LIGHT WITHIN REACH.
--- NOTE | 2020-10-25 04:44 | NUR ---
MARKETING OPERATIONS MANAGER IN ROOM TO OBTAIN BLOOD FOR AM LABS.
--- NOTE | 2020-10-25 05:01 | NUR ---
PATIENT IS AWAKE, LAYS IN HERRERA'S POSITION. NO COMPLAINTS OF PAIN, NO NEEDS AT THIS TIME. REMAINS ON 2 L/MIN NC, O2 SATS 100%, NO RESPIRATORY DISTRESS NOTED. CALL LIGHT WITHIN REACH.
[2020-10-25 05:35] LABS: ALBUMIN 2.3 g/dL (3.2-5.0); POTASSIUM 4.5 mmol/l (3.5-5.1)
[2020-10-25 05:50] LABS: CREATININE 5.1 mg/dL (0.5-1.0)
[2020-10-25] MEDS ORDERED: AMLODIPINE BESY10 MG PO (07:12)
[2020-10-25] MEDS ORDERED: CLOPIDOGREL75 MG PO (07:13)
[2020-10-25] MEDS ORDERED: APRESOLINE25 MG/TAB PO (07:13)
[2020-10-25] MEDS ORDERED: ATORVASTATIN CA40 MG PO (07:13)
[2020-10-25] MEDS ORDERED: ISOSORB MONO30 MG PO (07:14)
[2020-10-25] MEDS ORDERED: LASIX 40 MG TAB40 MG PO (07:14)
[2020-10-25] MEDS ORDERED: LISINOPRIL5 MG PO (07:14)
[2020-10-25] MEDS ORDERED: MAG-OXIDE200 MG PO (07:15)
[2020-10-25] MEDS ORDERED: METFORMIN HCL1000 MG PO (07:16)
[2020-10-25] MEDS ORDERED: SODIUM BICAR650 MG PO (07:17)
--- NOTE | 2020-10-25 07:34 | NUR ---
PT REPORT RECEIVED, PT ITALIAN SPEAKING, ALERT/ORIENTED X3, FLUIDS INFUSING AT 75CC/HR. IS NPO FOR NOW..
--- NOTE | 2020-10-25 09:55 | NUR ---
PT RESTING QUIETLY, NO COMPLAINTS AT THIS TIME. VITAL SIGNS AT THIS TIME
--- NOTE | 2020-10-25 14:11 | NUR ---
RECIEVED REPORT FROM CHEY PRATT
--- NOTE | 2020-10-25 14:36 | NUR ---
PT ARRIVED TO [facility] ROOM 277 VIA WHEELCHAIR ACCOMPAINED BY CHEY SAINI. PT AMBULATED TO BED WITH STEADY GAIT. PT IS A/O X3 AND BRUNEIAN SPEAKING ONLY. MARU KNOWLES TO ASSIST WITH TRANSLATION. ASSESSMENT AND VITALS COMPLETED. REPSIRATIONS ARE EVEN AND UNLABORED WITH NO DISRTESS NOTED ON 2L NC. REPORTED EXCERTIONAL SOB. LUNG SOUNDS ARE DIMINSHED. BOWEL SOUNDS ARE ACTIVE, LAST REPORTED BM 10/24/20. HEART RHYTHM NORMAL, SR PER ER MONITORING. SKIN INTACT. TRACE EDEMA NOTED TO BLE. #20G IN RAC AND #20G LH FLUSHED, SITES APPEARS HEALTHY AND PATENT. STANFORD CATHATER IN PLACE. CLEAR YELLOW URINE NOTED. PT DENIES OF ANY PAINS OR DISCOMFORTS AT THIS TIME. ALL SAFETY PRECAUTIONS ARE IN PLACE WITH CALL LIGHT IN REACH. ENCOURAGED PT TO CALL FOR ASSISTANCE. WILL CONTINUE TO MONITOR.
--- NOTE | 2020-10-25 16:00 | NUR ---
PT RESTING IN SEMI FOWLERS POSITION. RESPIRATIONS ARE EVEN AND UNLABORED WITH NO DISTRESS NOTED. STANFORD CATHATER IN PLACE, TUBING PATENT. PT DENIES OF ANY PAINS OR DISCOMFORTS. ALL SAFETY PRECAUTIONS ARE IN PLACE WITH CALL LIGHT IN REACH. WILL CONTINUE TO MONITOR.
--- NOTE | 2020-10-25 17:31 | NUR ---
DEMETRIO RESULTIIAUSTIN IN 194, COVERAGE ADMINISTERED.PT TOLERATED WELL.
--- NOTE | 2020-10-25 19:10 | NUR ---
1909-Report and handoff given by MAGALI Argueta.
--- NOTE | 2020-10-25 21:33 | NUR ---
2133-Pt lying in bed with eyes closed. Easily awoken. Denies pain. Denies SOB or chest pain. She is very pleasant. No s/s of distress. Offered her fluids and position change. Bed low and locked. Call light and phone within reach. She asked for me to please close her door so she could sleep. I complied with her request. Will frequently monitor, safety precautions in place.
[2020-10-26] VITALS: BP 120/45
--- NOTE | 2020-10-26 00:30 | NUR ---
0030-Pt asleep in bed, easily arousable. No s/s of distress. Bed low and locked. Call light and phone within reach. Safety precautions in place.
--- NOTE | 2020-10-26 03:30 | NUR ---
0330-Pt in bed asleep. No s/s of respiratory distress or cardiac distress. Pt is arousable. Bed low and locked. Call light and phone within reach. Safety precautions in place.
[2020-10-26 04:00] VITALS: BP 154/76
--- NOTE | 2020-10-26 04:30 | NUR ---
0430-Pt had nausea episode. Brought her ice chips and saltine crackers. She verbalized "[place]" concerning the crackers. I will pass the small episode on in report to dayshift. She may need PRN antinausea medication.
[2020-10-26 05:41] LABS: HEMATOCRIT 25.7 % (37.0-47.0); MEAN CELL VOLUME 92.1 fL CALC (80.0-100.0); MEAN CORPUSCULAR HGB 28.7 pG CALC (26.0-32.0); MEAN CORPUSCULAR HGB CONC 31.1 g/dL CAL (32.0-36.0); RED BLOOD COUNT 2.79 mill/uL (4.20-5.60)
[2020-10-26 05:44] LABS: ALBUMIN 2.7 g/dL (3.2-5.0); MAGNESIUM 1.7 mg/dL (1.6-2.3); POTASSIUM 4.2 mmol/l (3.5-5.1)
--- NOTE | 2020-10-26 05:50 | NUR ---
0550-Critical lab value called in from Mirna in the lab. BUN is 80 Creatinine is 5.5. These critical lab results were sent to Dr. Abad via text at 0596. This information will also be passed along in report.
[2020-10-26 05:52] LABS: CREATININE 5.5 mg/dL (0.5-1.0)
--- NOTE | 2020-10-26 05:59 | NUR ---
0559-After reading previous texts from Dr. Abad I called him by phone and verbally told him the critical lab results. His direct quote is "ok."
--- NOTE | 2020-10-26 06:20 | NUR ---
0620-Pt lying on left side awake. Medication administerd, fluids offered. Pt denies nausea and pain at this time. No s/s of distress. Bed low and locked. Call light and phone within reach. Safety precautions in place.
[2020-10-26 07:32] VITALS: BP 153/66
--- NOTE | 2020-10-26 09:00 | NUR ---
PT ALERT AND ORIENTED X 3. LUNGS CLEAR, 2 LPM. NO COMPLAINTS SHORTNESS OF BREATH OR OTHERWISE. STANFORD CATHETER REMOVED AFTER DR BENNETT SAW PT. POSSIBLE DISCHARGE LATER TODAY.
--- NOTE | 2020-10-26 09:48 | NUR ---
Blood culture result of Bacillus growth reported to Dr Abad. Likely a contaminant. No new orders at this time.
[2020-10-26 11:07] VITALS: BP 113/42
[2020-10-26] MEDS ORDERED: DRISDOL50000 UNIT PO (13:39)
[2020-10-26] MEDS ORDERED: ASPIRIN 81 LOW81 MG PO (14:23)
--- NOTE | 2020-10-26 14:30 | NUR ---
PT AMBULATED FOR 6 MINUTE WALK TEST, DID NOT QUALIFY FOR HOME O-2. PT AWARE OF PENDING DISCHARGE, IV REMOVED AND TELE REMOVED.
[2020-10-26 14:52] VITALS: BP 123/58
--- NOTE | 2020-10-26 15:41 | NUR ---
PT HAS BEEN DISCHARGED TO HOME. PT AND SON VERBALIZE UNDERSTANDING OF DC INSTRUCTIONS, TAKEN BY WHEELCHAIR TO VEHICLE. PT [facility]AVES [facility] IN STABLE CONDITION.
== END 2020-10-26 15:40 | disposition home or self-care (01) | DRG 281 ==
LOC: ED 03:08 → ED-I 04:38 → ED 05:11 → ICU 05:12 → MS2 10-25 14:36
PROVIDERS: Family Medicine; Internal Medicine Nephrology; Nurse Practitioner; ADMIT Internal Medicine; ATTEND Internal Medicine
PROC: 5A09357 Assistance with Respiratory Ventilation, Less than 24 Consecutive Hours, Continuous Positive Airway Pressure (ICD-10-PCS; principal; 2020-10-24)
DX: I21.4 Non-ST elevation (NSTEMI) myocardial infarction (principal); I13.0 Hypertensive heart and chronic kidney disease with heart failure and stage 1 through stage 4 chronic kidney disease, or unspecified chronic kidney disease; E87.2 Acidosis; N18.4 Chronic kidney disease, stage 4 (severe); N17.9 Acute kidney failure, unspecified; E87.1 Hypo-osmolality and hyponatremia; N25.81 Secondary hyperparathyroidism of renal origin; Z68.41 Body mass index [BMI] 40.0-44.9, adult; N39.0 Urinary tract infection, site not specified; E11.22 Type 2 diabetes mellitus with diabetic chronic kidney disease; I50.9 Heart failure, unspecified; E11.65 Type 2 diabetes mellitus with hyperglycemia; E87.5 Hyperkalemia; D63.1 Anemia in chronic kidney disease; I25.10 Atherosclerotic heart disease of native coronary artery without angina pectoris; E78.5 Hyperlipidemia, unspecified; E03.9 Hypothyroidism, unspecified; E66.01 Morbid (severe) obesity due to excess calories; R42 Dizziness and giddiness; I25.2 Old myocardial infarction; K21.9 Gastro-esophageal reflux disease without esophagitis; Z89.421 Acquired absence of other right toe(s); Z79.84 Long term (current) use of oral hypoglycemic drugs; Z87.891 Personal history of nicotine dependence; Z20.822 Contact with and (suspected) exposure to COVID-19
CPT/HCPCS: J1650; J1956; Q5106 EC

== ENCOUNTER 2020-11-20 00:58 | Emergency (ER) | payer SELFPAY ==
[~2020-11-20] VITALS: Ht 147.3 cm; Wt 84.2 kg
[~2020-11-20 00:58] MED LIST changes: +ACIDOPHILUS1 CHW; +AMLODIPINE BESY10 MG PO; +APRESOLINE25 MG/TAB PO; +ASPIRIN 81 LOW81 MG PO; +ATORVASTATIN CA40 MG PO; +B-COMPL12; +CLOPIDOGREL75 MG PO; +DRISDOL50000 UNIT; +DRISDOL50000 UNIT PO; +FAMOTIDINE20 M1 PO; +FERROUS SULF325 M2 PO; +HYDRALAZINE50 MG PO; +ISOSORB MONO30 MG PO; +ISOSORBIDE MONO30 MG PO; +LASIX 40 MG TAB40 MG PO; +LISINOPRIL5 MG PO; +LOVASTATIN10 M1 PO; +MAG-OXIDE200 MG PO; +MAGN OXIDE XX; +METFORMIN HCL1000 MG PO; +SODIUM BICAR650 MG PO; +SODIUM BICARBONATE PO
--- NOTE | 2020-11-20 01:36 | NUR ---
BREATHING TREATMENT GIVEN.
[2020-11-20 01:39] LABS: IMMATURE GRANULOCYTES 0.4 % (0.0-5.0); MEAN CELL VOLUME 93.2 fL CALC (80.0-100.0); MEAN CORPUSCULAR HGB 28.7 pG CALC (26.0-32.0); MEAN CORPUSCULAR HGB CONC 30.8 g/dL CAL (32.0-36.0); NEUT# 5.34 thou/uL (2.00-7.15); RED BLOOD COUNT 2.79 mill/uL (4.20-5.60); RED CELL DISTRI WIDTH 12.4 % (11.5-15.5)
[2020-11-20 02:00] LABS: BILIRUBIN, TOTAL 0.3 mg/dL (0.0-1.4); TOTAL PROTEIN 7.4 g/dL (6.3-8.2)
[2020-11-20 02:03] LABS: D-DIMER 1.06 mg/L (0.19-0.60); PROTHROMBIN TIME 10.1 SECONDS (9.0-12.5)
[2020-11-20 02:07] LABS: ALBUMIN 3.4 g/dL (3.2-5.0); CREATININE 8.3 mg/dL (0.5-1.0); MAGNESIUM 2.2 mg/dL (1.6-2.3); POTASSIUM 6.4 mmol/l (3.5-5.1)
[2020-11-20 02:37] LABS: URINE BILIRUBIN - DIPSTICK NEGATIVE (NEGATIVE); URINE BLOOD DIPSTICK MODERATE (NEGATIVE); URINE COLOR YELLOW; URINE GLUCOSE - DIPSTICK 500 mg/dL (NEGATIVE); URINE KETONE NEGATIVE (NEGATIVE); URINE LEUK ESTERASE NEGATIVE (NEGATIVE); URINE PROTEIN - DIPSTICK >=300 mg/dL (NEG-TRACE); URINE UROBILINOGEN - DIPSTICK 0.2 E.U./dL (0.2)
[2020-11-20 02:39] LABS: URINE NITRITE - DIPSTICK NEGATIVE (Negative)
[2020-11-20 02:44] LABS: URINE SQUAMOUS EPITHELIAL CELL FEW EPI/hpf (0-FEW); URINE WBC 0-2 WBC/hpf (0-5)
[2020-11-20 03:12] LABS: TSH, 3RD GENERATION 29.7 uIU/mL (0.47 - 4.68)
[2020-11-20 03:30] VITALS: BP 150/66
== END 2020-11-20 03:38 | disposition short-term general hospital (02) | DRG 291 ==
LOC: ED 00:58
PROVIDERS: Family Medicine
PROC: 0T9B70Z Drainage of Bladder with Drainage Device, Via Natural or Artificial Opening (ICD-10-PCS; principal; 2020-11-20)
DX: I13.2 Hypertensive heart and chronic kidney disease with heart failure and with stage 5 chronic kidney disease, or end stage renal disease (principal); N18.6 End stage renal disease; E87.2 Acidosis; E87.5 Hyperkalemia; E11.22 Type 2 diabetes mellitus with diabetic chronic kidney disease; I50.9 Heart failure, unspecified; E78.00 Pure hypercholesterolemia, unspecified; I25.2 Old myocardial infarction; Z79.4 Long term (current) use of insulin; Z20.822 Contact with and (suspected) exposure to COVID-19

== ENCOUNTER 2021-02-19 20:40 | Emergency (ER) | payer SELFPAY ==
[~2021-02-19] VITALS: Ht 147.3 cm; Wt 76.0 kg
[2021-02-19 21:19] LABS: HEMATOCRIT 27.9 % (37.0-47.0); HEMOGLOBIN 9.1 g/dl (12.0-16.0); IMMATURE GRANULOCYTES 0.2 % (0.0-5.0); MEAN CELL VOLUME 88.6 fL CALC (80.0-100.0); MEAN CORPUSCULAR HGB 28.9 pG CALC (26.0-32.0); MEAN CORPUSCULAR HGB CONC 32.6 g/dL CAL (32.0-36.0); NEUT# 3.52 thou/uL (2.00-7.15); RED BLOOD COUNT 3.15 mill/uL (4.20-5.60); RED CELL DISTRI WIDTH 12.9 % (11.5-15.5)
[2021-02-19 21:34] LABS: ALBUMIN 3.2 g/dL (3.2-5.0); BILIRUBIN, TOTAL 0.3 mg/dL (0.0-1.4); TOTAL PROTEIN 6.5 g/dL (6.3-8.2)
[2021-02-19 21:36] LABS: CREATININE 8.3 mg/dL (0.5-1.0); POTASSIUM 4.3 mmol/l (3.5-5.1)
[2021-02-19 23:15] VITALS: BP 136/70
== END 2021-02-19 23:15 | disposition home or self-care (01) | DRG 638 ==
LOC: ED 20:40
DX: E11.649 Type 2 diabetes mellitus with hypoglycemia without coma (principal); I13.2 Hypertensive heart and chronic kidney disease with heart failure and with stage 5 chronic kidney disease, or end stage renal disease; N18.6 End stage renal disease; E11.22 Type 2 diabetes mellitus with diabetic chronic kidney disease; I50.9 Heart failure, unspecified; E78.00 Pure hypercholesterolemia, unspecified; M19.90 Unspecified osteoarthritis, unspecified site; I25.2 Old myocardial infarction; Z79.84 Long term (current) use of oral hypoglycemic drugs; Z99.2 Dependence on renal dialysis